=== PATIENT | male | born 1965 | race Caucasian/White ===

== ENCOUNTER 2020-12-10 15:36 | Emergency (ER) | payer OTHER ==
[2020-12-10 15:42] VITALS: BP 152/89
--- NOTE | 2020-12-10 16:06 | ED Back Pain ---
General Chief Complaint: Hip/Pelvic Problems Stated Complaint: TAILBONE INJ Nursing Triage Note: Fell and landed on tailchi [facility] at approx 1230. Is having tailbone pain worse with sitting. Has taken advil for pain. Currently rating pain at 5/10. Nursing Sepsis Screen: No Definite Risk Source of Information: Patient History of Present Illness Date Seen by Provider: December 10, 2020 Time Seen by Provider: 13:45 Initial Comments Patient is a 55-year-old male who presents with tailbone pain after falling from standing landing on top of a large stone. This is an isolated complaint. Injury occurred 3 hours prior to ED arrival. Pain is continuous, nonradiating and nonprogressive. It is described as dull rated moderate to severe worse with palpation and sitting. No other symptoms or complaints. Patient is not on anticoagulation therapy. Location: Coccyx Timing/Duration: 4-6 Hours Severity: Severe Radiation: Other Method of Injury: Other Modifying Factors: Improves With Other Associated Symptoms: other Allergies and Home Medications Allergies Coded Allergies: No Known Drug Allergies (Unverified , 12/10/20) Patient Home Medication List Home Medication List Reviewed: Yes Review of Systems Constitutional: no symptoms reported EENTM: no symptoms reported Respiratory: no symptoms reported Cardiovascular: no symptoms reported Gastrointestinal: no symptoms reported Genitourinary: no symptoms reported Musculoskeletal: see HPI Skin: no symptoms reported Psychiatric/Neurological: No Symptoms Reported All Other Systems Reviewed Negative Unless Noted: Yes Past Lblmmvp-Nbcjyl-Tswamp Hx Past Med/Social Hx: Reviewed Nursing Past Med/Soc Hx Patient Social History Alcohol Use: Denies Use Smoking Status: Current Everyday Smoker 2nd Hand Smoke Exposure: Yes Recent Infectious Disease Expo: No Recent Hopitalizations: No Seasonal Allergies Seasonal Allergies: No Past Medical History Surgeries: No Respiratory: No Cardiac: No Neurological: No Genitourinary: No Gastrointestinal: No Musculoskeletal: No Endocrine: No HEENT: No Cancer: No Psychosocial: No Integumentary: No Blood Disorders: No Physical Exam Vital Signs Vital Signs - First Documented 12/10/20 15:42 Temp 36.7 Pulse 95 Resp 16 B/P (MAP) 152/89 (110) Pulse Ox 96 Capillary Refill : Less Than 3 Seconds Height, Weight, BMI Height: '" Weight: lbs. oz. kg; BMI Method: General Appearance: Mild Distress (secpndar to pain) Back: No CVA Tenderness, No Vertebral Tenderness, Decreased Range of Motion, Other (Tenderness to palpation over coccyx.) Neurologic/Psychiatric: Alert, Oriented x3, No Motor/Sensory Deficits Progress/Results/Core Measures Results/Orders My Orders Orders - ALISON YBARRA DO Sacrum & Coccyx (12/10/20 15:54) Vital Signs/I&O 12/10/20 15:42 Temp 36.7 Pulse 95 Resp 16 B/P (MAP) 152/89 (110) Pulse Ox 96 Blood Pressure Mean: 110 Departure Communication (Admissions) Sacrum/coccyx. Proximal coccygeal fracture. Patient with coccygeal fracture. Recommendations are supportive care. Impression Primary Impression: Closed coccygeal fracture Disposition: HOME, SELF-CARE Condition: Stable Departure-Patient Inst. Decision time for Depature: 16:08 Referrals: NO,LOCAL PHYSICIAN (PCP/Family) Primary Care Physician Patient Instructions: Coccyx Fracture (DC) Add. Discharge Instructions: X-ray does shows a fracture of your coccyx or tailbone. Take ibuprofen for pain and hydrocodone as needed for additional relief. Use a a stool softener donut p illow for sitting. Pain may last up to 6 weeks. Follow-up with your PCP in 2 weeks. All discharge instructions reviewed with patient and/or family. Voiced understanding. Scripts Hydrocodone/Acetaminophen (Hydrocodone-Acetamin 5-325 mg) 1 Each Tablet 1 TAB PO Q4H PRN for PAIN-MODERATE (5-7), #20 TAB Prov: ALISON YBARRA DO 12/10/20 ALISON YBARRA DO December 10, 2020 16:06
[2020-12-10] MEDS ORDERED: ACHD5005 PO (16:09)
--- NOTE | 2020-12-10 16:15 | Diagnostic Imaging Report ---
EXAMINATION: Radiographs of the sacrum and coccyx, 3 views. COMPARISON: None. HISTORY: 55-year-old male, fall. Sacrum and coccygeal pain. FINDINGS: There is offset in the region of the first coccygeal segment which may relate to a mildly displaced coccygeal fracture. The pubic symphysis and sacroiliac joints are normally aligned. Grossly unremarkable appearance of the hip joints. There is a normal variant right os acetabula. IMPRESSION: Offset in the region of the first coccygeal segment which may relate to a mildly displaced coccygeal fracture. Dictated by: Dictated on workstation # [id number]
== END 2020-12-10 16:14 | disposition home or self-care (01) ==
LOC: ER FS 15:39
DX: S32.2XXA Fracture of coccyx, initial encounter for closed fracture (principal); F17.200 Nicotine dependence, unspecified, uncomplicated; W18.30XA Fall on same level, unspecified, initial encounter
CPT/HCPCS: 72220

== ENCOUNTER 2021-03-10 16:27 | Emergency (ER) | payer OTHER ==
[~2021-03-10] VITALS: Ht 182 cm; Wt 106.0 kg
[~2021-03-10 16:27] MED LIST: ACHD5005 PO
[2021-03-10] MEDS ORDERED: LACTATED RINGERS 1,000 ML IV STA ×2 (16:50→17:23)
[2021-03-10 17:13] LABS: HEMATOCRIT 62 % (40-54); HEMOGLOBIN 21.4 G/DL (13.3-17.7); MEAN CORPUSCULAR HEMOGLOBIN 31 PG (25-34); WHITE BLOOD COUNT 11.8 10^3/uL (4.3-11.0)
[2021-03-10 17:14] LABS: BASOPHILS # (AUTO) 0.1 10^3/uL (0.0-0.1); BASOPHILS % (AUTO) 1 % (0-10); EOSINOPHILS % (AUTO) 0 % (0-10); LYMPHOCYTES # (AUTO) 1.1 X 10^3 (1.0-4.0); LYMPHOCYTES % (AUTO) 10 % (12-44); MEAN CORPUSCULAR HGB CONC 35 G/DL (32-36); MEAN CORPUSCULAR VOLUME 91 FL (80-99); MEAN PLATELET VOLUME 9.7 FL (7.4-10.4); MONOCYTES % (AUTO) 8 % (0-12); NEUTROPHILS # (AUTO) 9.6 X 10^3 (1.8-7.8); NEUTROPHILS % (AUTO) 81 % (42-75); PLATELET COUNT 208 10^3/uL (130-400)
--- NOTE | 2021-03-10 17:25 | Diagnostic Imaging Report ---
INDICATION: Shortness of breath, Covid positive. COMPARISON: None available. TECHNIQUE: Single radiograph of the chest dated March 10, 2021. FINDINGS: The cardiac silhouette is within normal limits in size. No significant pulmonary vascular congestion. The lungs are clear of focal pulmonary opacity. No pleural effusion. No pneumothorax. No acute osseous abnormality. IMPRESSION: No acute cardiopulmonary abnormality. Dictated by: Dictated on workstation # [id number]
[2021-03-10 17:29] LABS: ALBUMIN 3.5 GM/DL (3.2-4.5); BILIRUBIN,TOTAL 0.5 MG/DL (0.1-1.0); CALCIUM 8.9 MG/DL (8.5-10.1); CREATININE SERUM 1.51 MG/DL (0.60-1.30); POTASSIUM 4.6 MMOL/L (3.6-5.0); TOTAL PROTEIN 6.8 GM/DL (6.4-8.2)
[2021-03-10] MEDS ORDERED: ONDANSETRON 4 MG/2 ML (SDV) Z0FRAN IVP ONE (17:30)
[2021-03-10] MEDS ORDERED: RX-ALBUTEROL INHALER (VENTOLIN HFA) 8.5 GM IH STA ×2 (18:23→19:47)
[2021-03-10] MEDS ORDERED: HOLD METFORMIN - RECEIVED CONTRAST 20 ML VIAL IV SCH (18:30)
[2021-03-10] MEDS ORDERED: IOHEXOL 350 MG/ML 100 ML (OMNIPAQUE 350) VIAL IV ONE (18:30)
[2021-03-10] MEDS ORDERED: NS 100 ML (IVPB) BAG IV ONE (18:30)
[2021-03-10] MEDS ORDERED: CATHETER FLUSH 10 ML SYR IV PRN (18:30)
[2021-03-10 18:55] LABS: CLARITY,URINE SLIGHTLY CLOUDY; COLOR,URINE DARK YELLOW; GLUCOSE, URINE (UA) NEGATIVE (NEGATIVE); KETONES,URINE NEGATIVE (NEGATIVE); NITRITE,URINE NEGATIVE (NEGATIVE); PROTEIN,URINE 2+ (NEGATIVE)
[2021-03-10 18:56] LABS: BACTERIA,URINE FEW /HPF; BILIRUBIN,URINE 2+ (NEGATIVE); LEUKOCYTE ESTERASE ,URINE NEGATIVE (NEGATIVE)
--- NOTE | 2021-03-10 19:17 | ED Cough/URI ---
General Chief Complaint: Respiratory Problems Stated Complaint: LOW O2; COVID+ Nursing Triage Note: PATIENT PRESENTS TO THE ED WITH C/O SHORTNESS OF BREATH AND COVID +. PATIENT REPORTS THAT HE TESTED POSITIVE THIS MORNING. HE STATES HIS SYMPTOMS BEGAN YESTERDAY WITH LEG AND BACK PAIN. Source: patient Exam Limitations: no limitations History of Present Illness Date Seen by Provider: Mar 10, 2021 Time Seen by Provider: 16:46 Initial Comments Here with complaint of shortness of breath. Patient states that he tested positive this morning for COVID-19 and has paperwork for that from urgent care walk-in clinic. Started yesterday with symptoms which was mainly back pain. Had nausea and dry heaves today. States he is not had any diarrhea. Concerned today due to oxygen saturations getting lower. Does have a long history of smoking. Does not have lung problems known. Timing/Duration: yesterday, getting worse Severity/Quality: mild, severe Prior Episodes/Possible Cause: no prior episodes Modifying Factors: Worse With Activity; Improves With Rest Associated Symptoms: cough, fever/chills, nasal congestion, shortness of breath, wheezing Allergies and Home Medications Allergies Coded Allergies: No Known Drug Allergies (Unverified , 12/10/20) Home Medications Hydrocodone/Acetaminophen 1 Each Tablet, 1 TAB PO Q4H PRN for PAIN-MODERATE (5- 7) Prescribed by: ALISON YBARRA on 12/10/20 3490 Patient Home Medication List Home Medication List Reviewed: Yes Review of Systems Review of Systems Constitutional: see HPI, fever, malaise EENTM: nose congestion; No throat pain Respiratory: cough, short of breath Cardiovascular: No chest pain, No edema Gastrointestinal: see HPI; No abdominal pain; nausea Genitourinary: no symptoms reported Musculoskeletal: muscle pain; No muscle weakness Skin: no symptoms reported Psychiatric/Neurological: Denies Headache, Denies Paresthesia All Other Systems Reviewed Negative Unless Noted: Yes Past Fcgcwwe-Bjpckj-Ypdcnf Hx Patient Social History Tobacco Use?: No Use of E-Cig and/or Vaping dev: No Substance use?: No Alcohol Use?: No Pt feels they are or have been: No Seasonal Allergies Seasonal Allergies: No Past Medical History Surgeries: No Respiratory: No Cardiac: No Neurological: No Genitourinary: No Gastrointestinal: No Musculoskeletal: No Endocrine: No HEENT: No Cancer: No Psychosocial: No Integumentary: No Blood Disorders: No Family Medical History Reviewed Nursing Family Hx No Pertinent Family Hx Physical Exam Vital Signs - First Documented 03/10/21 16:35 Temp 38.1 Pulse 118 Resp 18 B/P (MAP) 88/71 (77) Pulse Ox 95 O2 Delivery Room Air Capillary Refill : Less Than 3 Seconds Height: '" Weight: lbs. oz. kg; 32.00 BMI Method: General Appearance: WD/WN, no apparent distress HEENT: PERRL/EOMI, pharynx normal Neck: full range of motion, supple Respiratory: lungs clear, normal breath sounds Cardiovascular: no murmur, tachycardia Gastrointestinal: non tender, soft Extremities: non-tender, normal inspection Neurologic/Psychiatric: alert, oriented x 3 Skin: normal color, warm/dry Progress/Results/Core Measures Suspected Sepsis SIRS Temperature: Pulse: 118 Respiratory Rate: 18 Laboratory Tests 03/10/21 16:54: White Blood Count 11.8H Blood Pressure 88 /71 Mean: 77 Laboratory Tests 03/10/21 16:54: Creatinine 1.51H, Platelet Count 208, Total Bilirubin 0.5 Results/Orders Lab Results Laboratory Tests Test 03/10/21 16:54 03/10/21 18:37 Range/Units White Blood Count 11.8 H 4.3-11.0 10^3/uL Red Blood Count 6.81 H 4.35-5.85 10^6/uL Hemoglobin 21.4 H 13.3-17.7 G/DL Hematocrit 62 H 40-54 % Mean Corpuscular Volume 91 80-99 FL Mean Corpuscular Hemoglobin 31 25-34 PG Mean Corpuscular Hemoglobin Concent 35 32-36 G/DL Red Cell Distribution Width 13.7 10.0-14.5 % Platelet Count 208 130-400 10^3/uL Mean Platelet Volume 9.7 7.4-10.4 FL Immature Granulocyte % (Auto) 0 % Neutrophils (%) (Auto) 81 H 42-75 % Lymphocytes (%) (Auto) 10 L 12-44 % Monocytes (%) (Auto) 8 0-12 % Eosinophils (%) (Auto) 0 0-10 % Basophils (%) (Auto) 1 0-10 % Neutrophils # (Auto) 9.6 H 1.8-7.8 X 10^3 Lymphocytes # (Auto) 1.1 1.0-4.0 X 10^3 Monocytes # (Auto) 1.0 0.0-1.0 X 10^3 Eosinophils # (Auto) 0.0 0.0-0.3 10^3/uL Basophils # (Auto) 0.1 0.0-0.1 10^3/uL Immature Granulocyte # (Auto) 0.1 0.0-0.1 10^3/uL Sodium Level 132 L 135-145 MMOL/L Potassium Level 4.6 3.6-5.0 MMOL/L Chloride Level 98 98-107 MMOL/L Carbon Dioxide Level 24 21-32 MMOL/L Anion Gap 10 5-14 MMOL/L Blood Urea Nitrogen 16 7-18 MG/DL Creatinine 1.51 H 0.60-1.30 MG/DL Estimat Glomerular Filtration Rate 48 BUN/Creatinine Ratio 11 Glucose Level 124 H 70-105 MG/DL Calcium Level 8.9 8.5-10.1 MG/DL Corrected Calcium 9.3 8.5-10.1 MG/DL Total Bilirubin 0.5 0.1-1.0 MG/DL Aspartate Amino Transf (AST/SGOT) 23 5-34 U/L Alanine Aminotransferase (ALT/SGPT) 15 0-55 U/L Alkaline Phosphatase 73 40-136 U/L C-Reactive Protein 5.90 H <0.50 MG/DL Total Protein 6.8 6.4-8.2 GM/DL Albumin 3.5 3.2-4.5 GM/DL Urine Color DARK YELLOW Urine Clarity SLIGHTLY CLOUDY Urine pH 6.0 5-9 Urine Specific [place] >=1.030 1.016-1.022 Urine Protein 2+ H NEGATIVE Urine Glucose (UA) NEGATIVE NEGATIVE Urine Ketones NEGATIVE NEGATIVE Urine Nitrite NEGATIVE NEGATIVE Urine Bilirubin 2+ H NEGATIVE Urine Urobilinogen 1.0 < = 1.0 MG/DL Urine Leukocyte Esterase NEGATIVE NEGATIVE Urine RBC (Auto) NEGATIVE NEGATIVE Urine RBC NONE /HPF Urine WBC 10-25 H /HPF Urine Crystals NONE /LPF Urine Bacteria FEW H /HPF Urine Casts PRESENT /LPF Urine Hyaline Casts 10-25 H /LPF Urine Granular Casts 5-10 H /LPF Urine Coarse Granular Casts 5-10 H /LPF Urine Mucus LARGE H /LPF Urine Culture Indicated YES My Orders Orders - MARISELA ANGUIANO MD Cbc With Automated Diff (03/10/21 16:50) Comprehensive Metabolic Panel (03/10/21 16:50) Ua Culture If Indicated (03/10/21 16:50) Crp Fs (03/10/21 16:50) Chest 1 View Ap/Pa Only (03/10/21 16:50) Lactated Ringers (Lr 1000 Ml Iv Solution (03/10/21 16:50) Ed Iv/Invasive Line Start (03/10/21 16:50) Covid-19 External Lab Results (03/10/21 16:51) Isolation Central Supply Req (03/10/21 16:51) Ondansetron Injection (Zofran Injectio (03/10/21 17:30) Lactated Ringers (Lr 1000 Ml Iv Solution (03/10/21 17:23) Rx-Albuterol Inhaler (Rx-Ventolin Hfa) (03/10/21 18:23) Ct Angio Chest W (03/10/21 18:26) Iohexol Injection (Omnipaque 350 Mg/Ml 1 (03/10/21 18:30) Received Contrast (Hold Metformin- Contr (03/10/21 18:30) Sodium Chloride Flush (Catheter Flush Sy (03/10/21 18:30) Ns (Ivpb) (Sodium Chloride 0.9% Ivpb Bag (03/10/21 18:30) Urine Culture (03/10/21 18:37) Rx-Albuterol Inhaler (Rx-Ventolin Hfa) (03/10/21 19:47) Medications Given in ED Current Medications Medications Dose Ordered Sig/Aubrie Route Start Time Stop Time Status Last Admin Dose Admin Iohexol 80 ml ONCE ONCE IV 03/10/21 18:30 03/10/21 18:31 DC 03/10/21 19:04 80 ML Ondansetron HCl 4 mg ONCE ONCE IVP 03/10/21 17:30 03/10/21 17:31 DC 03/10/21 17:30 4 MG Sodium Chloride 10 ml NEEDED PRN IV 03/10/21 18:30 03/10/21 19:04 10 ML Sodium Chloride 100 ml ONCE ONCE IV 03/10/21 18:30 03/10/21 18:31 DC 03/10/21 19:04 100 ML Vital Signs/I&O 03/10/21 16:35 Temp 38.1 Pulse 118 Resp 18 B/P (MAP) 88/71 (77) Pulse Ox 95 O2 Delivery Room Air Capillary Refill : Less Than 3 Seconds Blood Pressure Mean: 77 Progress Note : Progress Note Seen and evaluated. IV, labs, chest x-ray, UA, blood cultures and lactic acid ordered. LR 1 L bolus. We will repeat this x1. Zofran 4 mg IV ordered. Monitor patient. 1825: CT angiogram of the chest ordered due to tachycardia and relative hypoxia with borderline low blood pressure although improving with fluids. Patient is Covid positive and is at higher risk for pulmonary emboli. We will rule this out. Monitor patient. 1952: Patient overall feeling much better. O2 saturations [address] angiogram negative for pulmonary emboli or significant pneumonia. No indication for admission at this time. I did discuss monoclonal antibody therapy with the patient including risk and benefits. Patient has agreed to infusion. Orders written and sent to pharmacy. Rx albuterol inhaler given. Patient does have features of emphysema. I did caution him to quit smoking. I did discuss the small nodules noted on CT including his risk of cancer and that he should get follow-up for those over time but also to quit smoking which patient verbalized understanding. Discharged home with return precautions. Patient verbalized understanding of instructions and agreement with plan. ECG Initial ECG Impression Date: Mar 10, 2021 Initial ECG Impression Time: 16:50 Initial ECG Rate: 117 Initial ECG Rhythm: S.Tach Initial ECG Comparisson: No Previous ECG Available Comment Sinus tachycardia with rightward axis. No evidence of ST elevation PR. No previous available for comparison. Interpreted by me. Diagnostic Imaging Diagonstic Imaging: Xray Plain Films/CT/US/NM/MRI: chest Comments [facility] [place] [place] NAME: LILIAN SAMSON [facility] REC#: [id number] PT STATUS: REG ER : 1965 PHYSICIAN: MARISELA ANGUIANO MD ADMIT DATE: 03/10/21/ER FS Signed Date of Exam:03/10/21 CHEST 1 VIEW AP/PA ONLY INDICATION: Shortness of breath, Covid positive. COMPARISON: None available. TECHNIQUE: Single radiograph of the chest dated March 10, 2021. FINDINGS: The cardiac silhouette is within normal limits in size. No significant pulmonary vascular congestion. The lungs are clear of focal pulmonary opacity. No pleural effusion. No pneumothorax. No acute osseous abnormality. IMPRESSION: No acute cardiopulmonary abnormality. Dictated by: Dictated on workstation # [id number] Dict: 03/10/211720 Trans: 03/10/211816 [facility] [id number] Interpreted by: CANDIS MCDOWELL MD Electronically signed by: CANDIS MCDOWELL MD 03/10/211816 Diagonstic Imaging: CT Plain Films/CT/US/NM/MRI: chest Comments NAME: LILIAN SAMSON [facility] REC#: [id number] PT STATUS: REG ER : 1965 PHYSICIAN: MARISELA ANGUIANO MD ADMIT DATE: 03/10/21/ER FS Draft Date of Exam:03/10/21 CT ANGIO CHEST W PROCEDURE: CT angiography of the chest with contrast. TECHNIQUE: Multiple contiguous axial images were obtained through the chest after uneventful bolus administration of intravenous contrast. 3D reconstructed CTA MIP acquisitions were also performed. Auto Exposure Controls were utilized during the CT exam to meet ALARA standards for radiation dose reduction. DATE: March 10, 2021. COMPARISON: Chest radiograph March 10, 2021. INDICATION: 55-year-old male, hypoxia and tachycardia. The patient is Covid 19 positive. FINDINGS: There is a 2 mm right upper lobe pulmonary nodule on axial image 44. 3 mm pleurally based right middle lobe pulmonary nodule on axial image 87 and an additional 2 mm pleural-based right middle lobe pulmonary nodule on axial image 89. There is mild dependent atelectasis in the right lower lobe. There is mild dependent atelectasis in the left lower lobe. There is a 2 mm left lower lobe pulmonary nodule on axial image 97. There is no pneumothorax. There is no pleural effusion. The more central airways are patent. There is no identified central pulmonary embolus. There is no identified proximal segmental pulmonary embolus. There is limited evaluation for more distal emboli given the timing of the contrast bolus. The heart is not enlarged. There is no pericardial effusion. There is no identified abnormally enlarged mediastinal, hilar or axillary lymph node which specifically meets CT size criteria for adenopathy. The imaged portions of the upper abdomen are unremarkable. There is no identified acute bony abnormality. IMPRESSION: CT chest: 1. No imaging evidence to suggest active pneumonia or pneumonitis. 2. No identified central or proximal segmental pulmonary embolus. Limited evaluation for more distal pulmonary emboli. 3. Subcentimeter pulmonary nodules measuring up to maximally 3 mm in size. Dictated on workstation # [id number] Dict: 03/10/211903 Trans: 03/10/211942 [facility] [id number] Interpreted by: LUKE EMMANUEL MD Electronically signed by: Departure Impression Primary Impression: COVID-19 virus infection Disposition: HOME, SELF-CARE Condition: Stable Departure-Patient Inst. Decision time for Depature: 19:55 Referrals: NO,LOCAL PHYSICIAN (PCP/Family) Primary Care Physician Patient Instructions: REGEN-COV (casirivimab and imdevimab) FDA Fact Sheet, COVID-19 ED Add. Discharge Instructions: All discharge instructions reviewed with patient and/or family. Voiced understanding. Drink plenty of fluids and get plenty of rest. Your COVID-19 test was positive. You will need to remain in isolation for at least 10 days with day 0 ___03/09/21___ and you will count for 10 days from there. You must be symptom improving and fever free in the last 3 days without fever reducing medicines to be out of isolation after the 10th day. The health department should contact una u to direct timeframe as well. You need to notify your close contacts so that they may quarantine and this will include anybody that you are around for 10 minutes within 6 feet 2 days prior to onset of symptoms. Monitor your oxygen saturation while resting. Currently it is _94_ percent. If that starts to decline to the low 90s and certainly below 90, please return immediately to the emergency department for further evaluation. You may take ibuprofen 600 mg every 8 hours as needed for fever or pain. You may take Tylenol/acetaminophen 1000 mg every 8 hours as needed for fever or pain. Return for worse pain, fever, vomiting, weakness, breathing problems or other concerns as needed. You will be called regarding the infusion therapy. Please keep that appointment as this is a very effective treatment to prevent severe disease. We did discuss that you have a few small nodules in the lungs. These are not indicative of anything serious at this time but should be followed over time to ensure that you do not develop a lung cancer. You should quit smoking. MARISELA ANGUIANO MD Mar 10, 2021 19:17
--- NOTE | 2021-03-10 19:43 | Diagnostic Imaging Report ---
PROCEDURE: CT angiography of the chest with contrast. TECHNIQUE: Multiple contiguous axial images were obtained through the chest after uneventful bolus administration of intravenous contrast. 3D reconstructed CTA MIP acquisitions were also performed. Auto Exposure Controls were utilized during the CT exam to meet ALARA standards for radiation dose reduction. DATE: March 10, 2021. COMPARISON: Chest radiograph March 10, 2021. INDICATION: 55-year-old male, hypoxia and tachycardia. The patient is Covid 19 positive. FINDINGS: There is a 2 mm right upper lobe pulmonary nodule on axial image 44. 3 mm pleurally based right middle lobe pulmonary nodule on axial image 87 and an additional 2 mm pleural-based right middle lobe pulmonary nodule on axial image 89. There is mild dependent atelectasis in the right lower lobe. There is mild dependent atelectasis in the left lower lobe. There is a 2 mm left lower lobe pulmonary nodule on axial image 97. There is no pneumothorax. There is no pleural effusion. The more central airways are patent. There is no identified central pulmonary embolus. There is no identified proximal segmental pulmonary embolus. There is limited evaluation for more distal emboli given the timing of the contrast bolus. The heart is not enlarged. There is no pericardial effusion. There is no identified abnormally enlarged mediastinal, hilar or axillary lymph node which specifically meets CT size criteria for adenopathy. The imaged portions of the upper abdomen are unremarkable. There is no identified acute bony abnormality. IMPRESSION: CT chest: 1. No imaging evidence to suggest active pneumonia or pneumonitis. 2. No identified central or proximal segmental pulmonary embolus. Limited evaluation for more distal pulmonary emboli. 3. Subcentimeter pulmonary nodules measuring up to maximally 3 mm in size. Dictated by: Dictated on workstation # [id number]
[2021-03-10 20:07] VITALS: BP 133/78
--- NOTE | 2021-03-12 02:20 | Progress Note ---
Standard Progress Note Progress Notes/Assess & Plan Date Seen by a Provider: Mar 12, 2021 Time Seen by a Provider: 02:19 Progress/Assessment & Plan c/o CP again, same as before, last EKG did not show ischemia, will re order will give morphine again MD DANYA Chen JOSEPH K MD Mar 12, 2021 02:20
[2021-03-12] MEDS ORDERED: morphine INJ 10 MG/ML 1ML (SYR OR VIAL) IVP PRN (02:30)
[2021-03-12] MEDS ORDERED: ACET325T38 PO (09:40)
[2021-03-12] MEDS ORDERED: IBUP-2473 PO (09:40)
[2021-03-12] MEDS ORDERED: NF-LAMO200 PO (09:40)
== END 2021-03-10 20:07 | disposition home or self-care (01) ==
LOC: EDUNIT# 16:27 → ER FS 16:29
DX: U07.1 COVID-19 (principal)
CPT/HCPCS: 36415; 71045; 71275; 80053; 81000; 85025; 86141; 87088; 93005

== ENCOUNTER 2021-03-11 00:10 | Emergency (ER) | payer OTHER ==
[2021-03-11] MEDS ORDERED: ACETAMINOPHEN 500 MG TAB (TYLENOL) ONE (00:28)
[2021-03-11] MEDS ORDERED: ACETAMINOPHEN 500 MG TAB (TYLENOL) PO STA (00:29)
[2021-03-11] MEDS ORDERED: LACTATED RINGERS 1,000 ML IV ONE ×2 (00:33→00:45)
--- NOTE | 2021-03-11 00:58 | ED General ---
General Chief Complaint: Cough/Cold/Flu Symptoms Stated Complaint: DIZZINESS/COVID + Nursing Triage Note: Pt tested postive for Covid yesterday morning and was seen in the ED last night. Pt states he hasn't been feeling well since discharged from the ED and that he has generalized body aches. Source of Information: Patient Exam Limitations: No Limitations History of Present Illness Date Seen by Provider: Mar 11, 2021 Time Seen by Provider: 00:25 Initial Comments Here with report of still not feeling well. Seen after being tested positive for Covid yesterday. Quite anxious. He did get an albuterol inhaler. He did try 4 puffs of that at home. Now he is tachycardic and anxious. He does have underlying anxiety disorder with his bipolar. He was anxious on the first visit as well. O2 saturations still 93% or above. He states his could not get his blood pressure. Does admit to been quite dehydrated before getting Covid and still feels dehydrated now. He did have 2 L of fluid earlier. Work-up included CT scan of the chest for concerns for pulmonary embolism. This was negative. He had no infiltrates on chest x-ray. Does have emphysematous changes and is a smoker. Did take ibuprofen at home about 1/2-hour prior to arrival did arrive with mild fever. Still has body aches. Denies diarrhea or vomiting. Timing/Duration: 1-2 Days, Getting Worse Severity: Moderate Associated Systoms: No Chest Pain; Cough, Fever/Chills; No Nausea/Vomiting; Shortness of Air; No Weakness Allergies and Home Medications Allergies Coded Allergies: No Known Drug Allergies (Unverified , 12/10/20) Home Medications Hydrocodone/Acetaminophen 1 Each Tablet, 1 TAB PO Q4H PRN for PAIN-MODERATE (5- 7) Prescribed by: ALISON YBARRA on 12/10/20 7292 Patient Home Medication List Home Medication List Reviewed: Yes Review of Systems Review of Systems Constitutional: see HPI, fever, malaise EENTM: nose congestion; No throat pain Respiratory: see HPI Cardiovascular: No chest pain; palpitations Gastrointestinal: No abdominal pain, No nausea, No vomiting Genitourinary: no symptoms reported Musculoskeletal: No joint pain; muscle pain Skin: no symptoms reported Psychiatric/Neurological: Anxiety; Denies Headache All Other Systems Reviewed Negative Unless Noted: Yes Past Cywplkh-Oixyag-Lcdwjd Hx Patient Social History Tobacco Use?: No Use of E-Cig and/or Vaping dev: No Substance use?: No Alcohol Use?: No Pt feels they are or have been: No Seasonal Allergies Seasonal Allergies: No Past Medical History Surgeries: No Respiratory: No Cardiac: No Neurological: No Genitourinary: No Gastrointestinal: No Musculoskeletal: No Endocrine: No HEENT: No Cancer: No Psychosocial: No Integumentary: No Blood Disorders: No Family Medical History Reviewed Nursing Family Hx No Pertinent Family Hx Physical Exam Vital Signs Vital Signs - First Documented 03/11/21 00:15 Temp 38.2 Pulse 142 Resp 18 B/P (MAP) 102/57 (72) Pulse Ox 93 O2 Delivery Room Air Capillary Refill : Less Than 3 Seconds Height, Weight, BMI Height: '" Weight: lbs. oz. kg; 32.00 BMI Method: General Appearance: WD/WN, Anxious Neck: Non Tender, Supple Respiratory: Lungs Clear, Normal Breath Sounds Cardiovascular: No Murmur, Tachycardia Gastrointestinal: Non Tender, Soft Back: Normal Inspection, No CVA Tenderness, No Vertebral Tenderness Extremity: Normal Range of Motion, Non Tender Neurologic/Psychiatric: Alert, Oriented x3 Skin: Normal Color, Warm/Dry Progress/Results/Core Measures Suspected Sepsis SIRS Temperature: Pulse: 142 Respiratory Rate: 18 Blood Pressure 102 /57 Mean: 72 Results/Orders My Orders Orders - MARISELA ANGUIANO MD Acetaminophen Tablet (Tylenol Tablet) (03/11/21 00:29) Ed Iv/Invasive Line Start (03/11/21 00:32) Lactated Ringers (Lr 1000 Ml Iv Solution (03/11/21 00:45) Acetaminophen Tablet (Tylenol Tablet) (03/11/21 00:28) Lactated Ringers (Lr 1000 Ml Iv Solution (03/11/21 00:33) Dexamethasone Injection (Decadron Injec (03/11/21 00:45) Dexamethasone Injection (Decadron Inje (03/11/21 00:41) Dexamethasone Injection (Decadron Inje (03/11/21 00:45) Medications Given in ED Current Medications Medications Dose Ordered Sig/Aubrie Route Start Time Stop Time Status Last Admin Dose Admin Dexamethasone Sodium Phosphate 10 mg ONCE ONCE IV 03/11/21 00:45 03/11/21 00:46 DC 03/11/21 00:46 10 MG Lactated Ringer's 1,000 ml @ 0 mls/hr Q0M ONCE IV 03/11/21 00:45 03/11/21 00:46 DC 03/11/21 00:41 999 MLS/HR Vital Signs/I&O 03/11/21 00:15 Temp 38.2 Pulse 142 Resp 18 B/P (MAP) 102/57 (72) Pulse Ox 93 O2 Delivery Room Air Capillary Refill : Less Than 3 Seconds Blood Pressure Mean: 72 Progress Note : Progress Note Seen and evaluated. I did review earlier visit again. Patient did have findings of dehydration including hemoconcentration and concentrated urine. He did receive 2 L of IV fluid. We will go ahead and get another LR 1 L bolus going and give acetaminophen 1 g p.o. Given his emphysematous changes and likelihood of reactive airway disease, we will go ahead and give Decadron 10 mg IV now continue with the Medrol Dosepak if discharged. Patient seemed reassured. We will monitor him for about an hour and then discharge him if improved. Monitor patient. 0206: Overall feeling much better. Heart rate down to the 120s. O2 sat in the mid 93-95. Patient states he feels much more comfortable now. Discharged home with return precautions. Patient verbalized understanding instructions and agreement with plan. Departure Impression Primary Impression: COVID-19 virus infection Disposition: 01 HOME, SELF-CARE Condition: Stable Departure-Patient Inst. Decision time for Depature: 02:08 Referrals: NO,LOCAL PHYSICIAN (PCP/Family) Primary Care Physician Patient Instructions: COVID-19 ED Add. Discharge Instructions: All discharge instructions reviewed with patient and/or family. Voiced understanding. Continue with plenty of fluids. You may take Tylenol and/or ibuprofen per previous discharge instructions. Return for worse pain, fever, vomiting, weakness, breathing problems or other concerns as needed. The hospital should call you for infusion therapy as discussed on previous discharge instructions. Please keep that appointment. MARISELA ANGUIANO MD Mar 11, 2021 00:58
[2021-03-11 02:10] VITALS: BP 92/52
[2021-03-12] MEDS ORDERED: IBUP-2473 PO (09:40)
[2021-03-12] MEDS ORDERED: NF-LAMO200 PO (09:40)
[2021-03-12] MEDS ORDERED: ACET325T38 PO (09:40)
== END 2021-03-11 02:13 | disposition home or self-care (01) ==
LOC: ER FS 00:18
DX: U07.1 COVID-19 (principal)
CPT/HCPCS: 93005